=== PATIENT | female | born 1960 | race Caucasian/White ===

== ENCOUNTER 2019-12-07 15:07 | Outpatient (CLI) | payer BC, SELFPAY ==
--- NOTE | ~2019-12-07 | US_ITS ---
EXAMINATION: US transvaginal DATE: 12/07/2019 15:37 INDICATION: Pelvic and perineal pain TECHNIQUE: Multiple endovaginal sonographic images of the pelvis were obtained. COMPARISON: CT, 12/17/2014 FINDINGS: The uterus measures 5.2 x 2.8 x 3.1 cm. There is a 2.1 x 2.1 x 2.9 cm mass projecting near the uterine fundus which likely represents a pedunculated fibroid. The endometrial complex measures 3 mm. The ovaries are not visualized however no adnexal abnormality is seen. There is no free fluid in the pelvis. IMPRESSION: 1. No sonographic correlate for the patient's symptoms. Reviewed, dictated and finalized at location A.
== END 2019-12-07 15:08 ==
PROVIDERS: PCP Internal Medicine; Visit Provider Clinical Nurse Specialist
DX: R10.2 Pelvic and perineal pain (principal)
CPT/HCPCS: 76830

== ENCOUNTER 2020-01-07 10:10 | Outpatient (CLI) | payer BC, SELFPAY ==
[2020-01-07 11:56] LABS: Hepatitis B Surface Antigen Negative (Negative)
[2020-01-07 12:14] LABS: Hepatitis C Virus Antibody Negative (Negative)
[2020-01-08 08:29] LABS: Rapid Plasma Reagin Non-Reactive (NonReactive)
[2020-01-13 17:39] LABS: HSV 1 IgM Screen Negative (Negative); HSV 2 IgM Screen Negative (Negative)
== END 2020-01-07 10:11 | disposition home or self-care (01) ==
PROVIDERS: PCP Internal Medicine; Visit Provider Obstetrics & Gynecology
DX: Z20.2 Contact with and (suspected) exposure to infections with a predominantly sexual mode of transmission (principal)
CPT/HCPCS: 36415; 86592; 86695; 86696; 86803; 87340

== ENCOUNTER 2020-02-04 09:35 | Outpatient (CLI) | payer BC, SELFPAY ==
--- NOTE | ~2020-02-04 | DEXA_ITS ---
Bone Density Report Name: Katelyn Fermin Age: 59 Sex: Female Ethnicity: White Date of : 1960 Indication: postmenopausal; Referring Provider: ANTONIO PENN Study: Bone densitometry was performed. Exam Date: February 04, 2020 Accession number: [id number] Bone Density: Region BMD T-score Z-score Classification AP Spine (L1, L4) 0.959 -0.7 0.5 Normal Femoral Neck (Left) 0.696 -1.4 -0.2 Osteopenia Total Hip (Left) 0.878 -0.5 0.3 Normal Total Hip Bilateral Avg 0.877 -0.6 0.3 Normal Femoral Neck (Right) 0.690 -1.4 -0.3 Osteopenia Total Hip (Right) 0.875 -0.6 0.3 Normal World Health Organization criteria for BMD impression classify patients as: Normal (T-score at or above -1.0), Osteopenia (T-score between -1.0 and -2.5), or Osteoporosis (T-score at or below -2.5). 10-year Fracture Risk(1): Major Osteoporotic Fracture 6.6% Hip Fracture 0.8% Reported Risk Factors: [place] (), Neck BMD=0.690, BMI=37.2, smoking (1) FRAX(R) Version 3.08. Fracture probability calculated for an untreated patient. Fracture probability may be lower if the patient has received treatment. Clinical Information Provided by Patient: Smokes Patient maximum height was 66 Menopause Age: 52 No regular weight bearing exercise Drinks caffeinated beverages Onset of menses at age 13 Number of children 0 Impression: The patient has low bone mass, based on the Left Femoral Neck T-score. The patient has an estimated ten-year risk of hip fracture of 0.8% and an estimated ten-year risk of major fracture of 6.6%, based on the WHO FRAX algorithm. The patient has risk factors, including: smoking. Discussion: BONE DENSITY IS LOW AT ONE OR MORE SKELETAL SITES. This patient's lowest T-score is low at one or more skeletal sites. It meets the World Health Organization's (WHO) criteria for ?low bone mass? (T-score between -1.0 and -2.5). The patient's 10-year risk of fracture as calculated by FRAX is less than the threshold where pharmacological therapy is recommended by the National Osteoporosis Foundation (NOF). However, all treatment decisions require clinical judgment and consideration of individual patient factors, including patient preferences, comorbidities, previous drug use, risk factors not captured in the FRAX model (e.g., frailty, falls, vitamin D deficiency, increased bone turnover, interval significant decline in bone density) and possible under or overestimation of fracture risk by FRAX. The patient should follow a healthful lifestyle (good nutrition with adequate calcium and vitamin D, and appropriate weight-bearing exercise). Follow-Up: Consider repeating this study in 2 to 3 years to reassess this patient's status, or sooner if there is some new clinical indication. Reported by: CHRISTIE on 02/04/2020 10:23:00 AM.
--- NOTE | ~2020-02-04 | MM_ITS ---
EXAMINATION: MM screening estefani BI w sriram HISTORY: Screening mammogram TECHNIQUE: Craniocaudal and mediolateral oblique 3-D tomosynthesis images were obtained and synthetic 2-D images were generated. CAD analysis was submitted and interpreted. COMPARISON: 03/07/2017 bilateral digital screening mammogram BREAST PARENCHYMAL COMPOSITION: FINDINGS: There is no evidence of suspicious mass, calcification, or architectural distortion to sugg est malignancy in either breast. There has been no suspicious interval change. IMPRESSION: 1. No mammographic evidence of malignancy. 2. Recommend routine screening mammography in one year. BI-RADS Category 1: Negative Reviewed, dictated and finalized at location A.
== END 2020-02-04 09:36 | disposition home or self-care (01) ==
LOC: ANHIMG 09:36
PROVIDERS: PCP Internal Medicine; Visit Provider Obstetrics & Gynecology
DX: Z12.31 Encounter for screening mammogram for malignant neoplasm of breast (principal); Z78.0 Asymptomatic menopausal state; M85.852 Other specified disorders of bone density and structure, left thigh; M85.851 Other specified disorders of bone density and structure, right thigh
CPT/HCPCS: 77063; 77067; 77080

== ENCOUNTER 2020-07-22 10:13 | Outpatient (CLI) | payer BC, SELFPAY ==
[2020-07-22 10:35] LABS: Basophils Absolute Auto 0.1 K/mm3 (0.0-0.1); Basophils Percent Auto 0.7 % (0.2-1.2); Eosinophils Absolute Auto 0.1 K/mm3 (0-0.3); Eosinophils Percent Auto 1.4 % (0-4.4); Hematocrit 40.4 % (37.0-47.0); Hemoglobin 12.7 g/dL (12.0-15.0); Immature Granulocyte Absolute 0.04 K/mm3 (0.00-0.031); Immature Granulocyte Percent A 0.5 % (0-0.5); Lymphocytes Absolute Auto 2.65 K/mm3 (0.9-3.2); Lymphocytes Percent Auto 31.8 % (18.3-44.2); Mean Corpuscular HGB Conc 31.4 g/dl (32-36); Mean Corpuscular Hemoglobin 26.1 pg (26-34); Mean Corpuscular Volume 83.1 fl (80-100); Mean Platelet Volume 11.1 fl (7.4-10.4); Monocytes Absolute Auto 0.9 K/mm3 (0.1-0.6); Monocytes Percent Auto 10.2 % (2.6-8.5); Neutrophils Absolute Auto 4.6 K/mm3 (1.3-6.7); Neutrophils Percent Auto 55.4 % (45.5-73.1); Platelet Count Result 297 k/mm3 (150-375); Red Blood Count 4.86 M/mm3 (4.2-5.4); Red Cell Distribution Width 16.2 % (11.5-14.5); White Blood Count 8.3 K/mm3 (4.5-10.0)
[2020-07-22 10:49] LABS: Alanine Aminotransferase 18 U/L (4-35); Albumin Level 4.4 g/dL (3.5-5.1); Alkaline Phosphatase 90 U/L (38-126); Anion Gap 3 mmol/L (8-16); Aspartate Amino Transferase 22 U/L (14-36); Bilirubin,Total 0.5 mg/dL (0.2-1.3); Blood Urea Nitrogen 11 mg/dL (7-17); Calcium 9.1 mg/dL (8.4-10.2); Carbon Dioxide 29 mmol/L (22-30); Chloride 106 mmol/L (98-107); Cholesterol 149 mg/dL (0-200); Estimated Glomerular Filt Rate > 60; Glucose 93 mg/dL (65-105); HDL Direct 38 mg/dL; Sodium 138 mmol/L (137-145); Triglycerides 144 mg/dL (<150)
[2020-07-22 10:58] LABS: LDL Cholesterol Direct 86 mg/dL
[2020-07-22 11:27] LABS: Vitamin D 25 Hydroxy 29.8 ng/mL
[2020-07-22 11:35] LABS: Potassium 4.4 mmol/L (3.4-5.0)
== END 2020-07-22 10:14 | disposition home or self-care (01) ==
PROVIDERS: PCP Internal Medicine; Visit Provider Clinical Nurse Specialist
DX: E78.5 Hyperlipidemia, unspecified (principal); E55.9 Vitamin D deficiency, unspecified; E03.9 Hypothyroidism, unspecified; E53.8 Deficiency of other specified B group vitamins; I10 Essential (primary) hypertension
CPT/HCPCS: 36415; 80053; 80061; 82306; 82607; 82746; 84443; 85025

== ENCOUNTER 2020-09-22 12:31 | Outpatient (CLI) | payer BC, SELFPAY ==
--- NOTE | ~2020-09-22 | XR_ITS ---
EXAMINATION: XR chest 2V DATE: 09/22/2020 12:47 INDICATION: Nonproductive cough TECHNIQUE: PA and lateral views of the chest are obtained. COMPARISON: 11/03/2016 FINDINGS: The lungs are free of acute opacities. There is no pleural effusion or pneumothorax. The ca rdiomediastinal silhouette is normal. There is mild thoracic spondylosis. IMPRESSION: 1. No acute cardiopulmonary abnormality. Reviewed, dictated and finalized at location A.
== END 2020-09-22 12:32 | disposition home or self-care (01) ==
PROVIDERS: PCP Internal Medicine; Visit Provider Clinical Nurse Specialist
DX: R05 Cough (principal)
CPT/HCPCS: 71046

== ENCOUNTER 2020-10-27 10:37 | Outpatient (CLI) | payer BC, SELFPAY ==
--- NOTE | 2020-10-27 11:15 | NEURO_ITS ---
Impression: # Complains of numbness of right hand. # Subtle evolving right Carpal Tunnel Syndrome. # Note right median nerve slowing that is supracarpal tunnel involvement. Also there is cross innervation between median and ulnar nerves. # Normal needle/EMG exam. # Only right upper extremity done per patient request. Nerve Conduction Studies Anti Sensory Summary Table Stim Site NR Peak (ms) P-T Amp (?V) Site1 Site2 Delta-P (ms) Dist (cm) Cuco (m/s) Right Median Anti Sensory (2-3nd Digit) Wrist 3.2 9.5 Wrist 2-3nd Digit 3.2 14.0 44 Wrist 4.2 6.2 Wrist 2-3nd Digit 3.2 14.0 44 Right Radial Anti Sensory (Base 1st Digit) Wrist 2.0 25.1 Wrist Base 1st Digit 2.0 0.0 Right Ulnar Anti Sensory (5th Digit) Wrist 2.2 31.9 Wrist 5th Digit 2.2 14.0 64 Motor Summary Table Stim Site NR Onset (ms) O-P Amp (mV) Site1 Site2 Delta-0 (ms) Dist (cm) Cuco (m/s) Right Median Motor (Abd Poll Brev) Wrist 3.4 1.2 Elbow Wrist 8.6 27.0 31 Elbow 12.0 1.2 Right Ulnar Motor (Abd Dig Minimi) Wrist 2.3 4.4 A Elbow Wrist 4.7 27.0 57 A Elbow 7.0 3.7 F Wave Studies NR F-Lat (ms) L-R F-Lat (ms) Right Median (Mrkrs) (Abd Poll Brev) 29.94 Right Ulnar (Mrkrs) (Abd Dig Min) 28.30 EMG Side Muscle Nerve Root Ins Act Fibs Amp Dur Recrt Comment Right 1stDorInt Ulnar C8-T1 Nml Nml Nml Nml Nml Right Ext Indicis Radial (Post Int) C7-8 Nml Nml Nml Nml Nml Right Ext Digitorum Radial (Post Int) C7-8 Nml Nml Nml Nml Nml Right BrachioRad Radial C5-6 Nml Nml Nml Nml Nml Right PronatorTeres Median C6-7 Nml Nml Nml Nml Nml Right Abd Poll Brev Median C8-T1 Nml Nml Nml Nml Nml MTDD
== END 2020-10-27 10:38 | disposition home or self-care (01) ==
LOC: ANHNEURO 10:39
PROVIDERS: PCP Internal Medicine; Visit Provider Clinical Nurse Specialist
DX: R20.0 Anesthesia of skin (principal); G56.01 Carpal tunnel syndrome, right upper limb
CPT/HCPCS: 95886; 95909

== ENCOUNTER 2021-05-08 14:54 | Outpatient (CLI) | payer BC, SELFPAY ==
--- NOTE | ~2021-05-08 | US_ITS ---
EXAMINATION:US venous doppler LE RT INDICATION:Right leg pain TECHNIQUE: Multiple grayscale, color flow and Doppler images of the right lower extremity deep venous systems were obtained and reviewed. COMPARISON:11/06/2016 FINDINGS: The common femoral, superficial femoral and popliteal veins demonstrate normal respiratory variation, augmentation and compressibility. Color flow is also seen within the posterior tibial, pe roneal, greater saphenous and profunda veins. IMPRESSION: 1: No lower extremity deep venous thrombosis. Reviewed, dictated and finalized at location A. [employer] PROFESSOR
== END 2021-05-08 14:55 | disposition home or self-care (01) ==
LOC: ANHIMG 14:59
PROVIDERS: PCP Internal Medicine; Visit Provider Internal Medicine
DX: M79.601 Pain in right arm (principal); R60.9 Edema, unspecified
CPT/HCPCS: 93971

== ENCOUNTER 2021-05-18 14:13 | Outpatient (CLI) | payer BC, SELFPAY ==
[2021-05-18 14:47] LABS: Add Urine Microscopic? YES; Appearance Urine Clear (Clear); Bacteria Urine Trace /hpf; Bilirubin Urine Negative (Negative); Blood Urine 1+ (Negative); Color Urine Yellow (Yellow); Glucose Urine UA Negative (Negative); Ketones Urine Negative (Negative); Leukocyte Esterase Ur Negative LEU/UL (Negative); Mucus Urine Rare /lpf; Nitrate Urine Negative (Negative); Protein Urine Negative (Negative); Specific Grav Ur 1.025 (1.001-1.035); Squamous Epithelial Cell Urine Rare /hpf (Few); WBC Urine 0-3 /hpf
== END 2021-05-18 14:14 | disposition home or self-care (01) ==
LOC: ANHLAB 14:15
PROVIDERS: PCP Internal Medicine; Visit Provider Internal Medicine
DX: M54.9 Dorsalgia, unspecified (principal)
CPT/HCPCS: 81001

== ENCOUNTER 2021-05-24 15:12 | Outpatient (CLI) | payer MEDICAID, SELFPAY ==
--- NOTE | ~2021-05-24 | CT_ITS ---
EXAMINATION: CT abdomen pelvis wo/w con DATE: 05/24/2021 16:04 INDICATION: Hematuria TECHNIQUE: Computed tomography (CT) of the abdomen and pelvis was performed without intravenous contr ast. CT of the abdomen and pelvis was then performed with a total of 130 mL Omnipaque-350 intravenous contrast using a double-bolus technique for simultaneous opacification of the renal parenchyma and r enal collecting system. Automated exposure control and iterative reconstruction technique were employ ed. The dose-length product was 2688.72 mGy-cm. COMPARISON: 12/17/2014 FINDINGS: CT UROGRAM: Lung bases are clear. Heart size is normal. Atherosclerotic coronary artery calcifications versus jonna nting. No pericardial or pleural effusion. Small sliding-type hiatal hernia. A few calcified gallston es in the dependent aspect of the normal gallbladder. Liver, spleen, pancreas and bilateral adrenal g lands are normal. Kidneys and ureters are normal with no urolithiasis, hydroureteronephrosis or perin ephric/ureteral stranding. Symmetric renal enhancement with no evident suspicious renal parenchymal l esions. The mid right and mid to distal left ureters are decompressed and unopacified with contrast. No urothelial irregularities identified along the contrast opacified portions of the bilateral renal collecting systems and ureters. Bladder is normal. There are few scattered colonic diverticula withou t adjacent inflammatory change to suggest diverticulitis. Small bowel and appendix are normal. 3.2 x 2.8 cm partially calcified pedunculated fibroid arising from the left side of the anteverted uterus. Bilateral adnexa are unremarkable. No free intraperitoneal gas or fluid. No pathologically enlarged a bdominal or pelvic lymphadenopathy. There is calcified atherosclerosis of the aorta, splenic and bila teral iliac arteries. Severe disc height loss at L2-L3 with prominent sclerotic Modic type III degene rative endplate changes at both sides of the disc space. IMPRESSION: 1. No urolithiasis or suspicious renal, ureteral or bladder lesions to explain patient's hematuria. 2. Fibroid uterus. Reviewed, dictated and finalized at location B. GE RIGGER
[2021-05-24 15:42] LABS: Estimated Glomerular Filt Rate > 60
== END 2021-05-24 15:13 | disposition home or self-care (01) ==
LOC: ANHIMG 15:15
PROVIDERS: PCP Internal Medicine; Visit Provider Internal Medicine
DX: R31.9 Hematuria, unspecified (principal); D25.9 Leiomyoma of uterus, unspecified
CPT/HCPCS: 74178; Q9967

== ENCOUNTER 2021-08-08 10:16 | Outpatient (CLI) | payer BC, MEDICAID, SELFPAY ==
[2021-08-08 10:46] LABS: Basophils Absolute Auto 0.1 K/mm3 (0.0-0.1); Basophils Percent Auto 0.9 % (0.2-1.2); Eosinophils Absolute Auto 0.1 K/mm3 (0-0.3); Eosinophils Percent Auto 1.3 % (0-4.4); Hematocrit 38.3 % (37.0-47.0); Hemoglobin 11.8 g/dL (12.0-15.0); Immature Granulocyte Absolute 0.03 K/mm3 (0.00-0.031); Immature Granulocyte Percent A 0.4 % (0-0.5); Lymphocytes Absolute Auto 2.12 K/mm3 (0.9-3.2); Lymphocytes Percent Auto 30.1 % (18.3-44.2); Mean Corpuscular HGB Conc 30.8 g/dl (32-36); Mean Corpuscular Volume 87.6 fl (80-100); Mean Platelet Volume 10.6 fl (7.4-10.4); Monocytes Absolute Auto 0.6 K/mm3 (0.1-0.6); Monocytes Percent Auto 8.7 % (2.6-8.5); Neutrophils Absolute Auto 4.1 K/mm3 (1.3-6.7); Neutrophils Percent Auto 58.6 % (45.5-73.1); Platelet Count Result 248 k/mm3 (150-375); Red Blood Count 4.37 M/mm3 (4.2-5.4); Red Cell Distribution Width 16.2 % (11.5-14.5)
[2021-08-08 10:57] LABS: Alanine Aminotransferase 19 U/L (4-35); Albumin Level 4.2 g/dL (3.5-5.1); Alkaline Phosphatase 96 U/L (38-126); Anion Gap 7 mmol/L (8-16); Aspartate Amino Transferase 25 U/L (14-36); Bilirubin,Total 0.6 mg/dL (0.2-1.3); Blood Urea Nitrogen 11 mg/dL (7-17); Calcium 8.4 mg/dL (8.4-10.2); Carbon Dioxide 25 mmol/L (22-30); Chloride 107 mmol/L (98-107); Cholesterol 172 mg/dL (0-200); Estimated Glomerular Filt Rate > 60; Glucose 96 mg/dL (65-110); HDL Direct 34 mg/dL; Potassium 4.6 mmol/L (3.4-5.0); Sodium 139 mmol/L (137-145); Triglycerides 149 mg/dL (<150)
[2021-08-08 11:08] LABS: LDL Cholesterol Direct 109 mg/dL
[2021-08-08 11:47] LABS: Vitamin D 25 Hydroxy 16.7 ng/mL
[2021-08-08 12:03] LABS: Folic Acid 8.9 ng/mL (2.76->20)
== END 2021-08-08 10:17 | disposition home or self-care (01) ==
LOC: ANHLAB 10:19
PROVIDERS: PCP Internal Medicine; Visit Provider Nurse Practitioner
DX: E78.5 Hyperlipidemia, unspecified (principal); E55.9 Vitamin D deficiency, unspecified; E53.8 Deficiency of other specified B group vitamins; E03.9 Hypothyroidism, unspecified; I10 Essential (primary) hypertension
CPT/HCPCS: 36415; 80053; 80061; 82306; 82607; 82746; 84443; 85025

== ENCOUNTER 2022-04-27 14:55 | Outpatient (CLI) | payer OTHER, SELFPAY | END 2022-04-27 14:56 | disposition home or self-care (01) | LOC: ANHGOSHLAB 14:59 | PROVIDERS: PCP Internal Medicine; Visit Provider Clinical Nurse Specialist | DX: E03.9 Hypothyroidism, unspecified (principal) | CPT/HCPCS: 36415; 84443 ==

== ENCOUNTER 2022-07-31 15:11 | Outpatient (CLI) | payer BC, SELFPAY ==
--- NOTE | ~2022-07-31 | US_ITS ---
EXAMINATION: US thyroid DATE: 07/31/2022 15:32 INDICATION: Hypothyroidism TECHNIQUE: Multiple ultrasound images of the thyroid were obtained. COMPARISON: None. FINDINGS: The right thyroid lobe measures 2.9 x 0.8 x 1.0 cm. The left thyroid lobe measures 2.7 x 0.9 x 0.7 c m. No discrete nodules identified. Diffuse decreased echogenicity and coarsened echotexture througho ut the thyroid with normal vascular flow on color Doppler. IMPRESSION: 1. Atrophic thyroid with coarsened echotexture, which could represent sequela of chronic thyroiditis. Reviewed, dictated and finalized at location A. IMPRESSION: 1. Atrophic thyroid with coarsened echotexture, which could represent sequela o f chronic thyroiditis.
--- NOTE | ~2022-07-31 | CT_ITS ---
EXAMINATION: CT lung screening DATE: 07/31/2022 15:27 INDICATION: Former smoker TECHNIQUE: Computed tomography (CT) of the chest was performed without intravenous contrast. Addition al 3D reconstructions utilizing coronal maximum intensity projection (MIP) were performed. Automated exposure control and iterative reconstruction technique were employed. The dose-length product was 26 8.13 mGy-cm. COMPARISON: None FINDINGS: 6-7 mm right upper lobe nodule. 5 mm nodule in the superior segment of the right lower lobe. 2 mm christiana cified and noncalcified nodules along the left major fissure. No pneumonia, pulmonary edema or pleura l effusion. Heart size is normal. Atherosclerotic coronary artery disease with likely stenting along the left anterior descending and right coronary arteries. No pericardial effusion. Aortic valve calci fication. Thoracic aorta is normal in caliber. No pathologically enlarged thoracic lymphadenopathy. T here is dependently layering fluid in the proximal to mid esophagus which could be related to reflux. Mild to moderate thoracic and severe cervical spondylosis. IMPRESSION: 1. Lung-RADS category 3: Probably benign. Further evaluation is recommended with noncontrast low-dose chest CT in 6 months. Reviewed, dictated and finalized at location L. IMPRESSION: 1. Lung-RADS category 3: Probably benign. Further evaluation is recommended wit h noncontrast low-dose chest CT in 6 months.
== END 2022-07-31 15:12 ==
PROVIDERS: PCP Internal Medicine; Visit Provider Clinical Nurse Specialist
DX: Z12.2 Encounter for screening for malignant neoplasm of respiratory organs (principal); E03.9 Hypothyroidism, unspecified; Z87.891 Personal history of nicotine dependence; R91.8 Other nonspecific abnormal finding of lung field
CPT/HCPCS: 71271; 76536

== ENCOUNTER 2022-08-30 09:36 | Outpatient (CLI) | payer BC, SELFPAY ==
[2022-08-30 18:44] LABS: Kit Draw Collected
== END 2022-08-30 09:37 | disposition home or self-care (01) ==
LOC: ANHGOSHLAB 09:37
PROVIDERS: PCP Internal Medicine; Visit Provider Clinical Nurse Specialist
DX: E03.9 Hypothyroidism, unspecified (principal); D64.9 Anemia, unspecified; E55.9 Vitamin D deficiency, unspecified; R73.9 Hyperglycemia, unspecified; I25.10 Atherosclerotic heart disease of native coronary artery without angina pectoris; E78.5 Hyperlipidemia, unspecified; I10 Essential (primary) hypertension; M25.449 Effusion, unspecified hand
CPT/HCPCS: 36415

== ENCOUNTER 2022-09-07 14:01 | Outpatient (CLI) | payer BC, SELFPAY ==
--- NOTE | ~2022-09-07 | XR_ITS ---
Left Hand Technique: PA, oblique, and lateral views were obtained. Clinical History: Effusion Findings: No acute fracture or dislocation is seen. Osseous alignment is anatomic. Joint spaces are p reserved. Soft tissues are unremarkable. Impression: Unremarkable left hand. Reviewed, dictated and finalized at location M. Impression: Unremarkable left hand.
== END 2022-09-07 14:02 ==
PROVIDERS: PCP Clinical Nurse Specialist; Visit Provider Clinical Nurse Specialist
DX: M79.89 Other specified soft tissue disorders (principal)
CPT/HCPCS: 73130

== ENCOUNTER 2022-09-19 16:29 | Outpatient (CLI) | payer BC, SELFPAY ==
--- NOTE | ~2022-09-19 | MM_ITS ---
EXAMINATION: MM screening estefani BI w sriram HISTORY: Screening mammogram TECHNIQUE: Craniocaudal and mediolateral oblique 3-D tomosynthesis images were obtained and synthetic 2-D images were generated. CAD analysis was submitted and interpreted. COMPARISON: 02/04/2020, 02/25/2007 BREAST PARENCHYMAL COMPOSITION: There are scattered areas of fibroglandular density. FINDINGS: No suspicious mass, calcification, or architectural distortion are identified in either юлия ast to suggest malignancy. There has been no suspicious interval change. IMPRESSION: 1. No mammographic evidence of malignancy. 2. Recommend routine screening mammography in one year. BI-RADS Category 1: Negative Reviewed, dictated and finalized at location A.
== END 2022-09-19 16:30 | disposition home or self-care (01) ==
LOC: ANHIMG 16:30
PROVIDERS: PCP Clinical Nurse Specialist; Visit Provider Clinical Nurse Specialist
DX: Z12.31 Encounter for screening mammogram for malignant neoplasm of breast (principal)
CPT/HCPCS: 77063; 77067

== ENCOUNTER 2022-10-17 10:39 | Outpatient (CLI) | payer BC, SELFPAY ==
--- NOTE | ~2022-10-17 | MR_ITS ---
MRI of the left hand Clinical history: Effusion TECHNIQUE: Coronal T1-weighted and T2 fat-sat images, sagittal T1-weighted and T2 fat-sat images, and axial T1-weighted, T2 fat-sat, and T1 fat-sat images were performed. Following intravenous administr ation of 20 cc MultiHance gadolinium, T1-weighted fat-sat imaging was performed in the axial and sagi ttal planes. FINDINGS: Bone marrow signals in the hand are unremarkable. There is focal marrow edema or hyperinten se marrow signal at the distal scaphoid pole, not well evaluated on this exam. Visualized joint space s appear intact. No joint effusion identified. No erosive or degenerative change evident. Visualized collateral ligaments appear intact. Flexor and extensor tendons in the hand are intact. Visualized musculature unremarkable. No soft tiss ue mass or fluid collection evident. There is focal subcutaneous soft tissue edema at the dorsal aspe ct of the fourth MCP joint region. No suspicious postcontrast enhancement identified. IMPRESSION: No osseous or articular abnormality seen in the hand. No joint effusion in the hand. Focal subcutaneous soft tissue edema of the dorsal aspect of the fourth MCP joint, nonspecific. T2 hyperintense marrow signal to distal scaphoid pole, possibly intraosseous ganglion cyst or geode, incompletely evaluated on this exam. If indicated, consider dedicated imaging of the wrist for furthe r evaluation. Reviewed, dictated and finalized at [facility]. IMPRESSION: No osseous or articular abnormality seen in the hand. No joint effusion in the hand. Focal subcutaneous soft tissue edema of the dorsal aspect of the fourth MCP carlos alberto nt, nonspecific. T2 hyperintense marrow signal to distal scaphoid pole, possibly intraosseous ga nglion cyst or geode, incompletely evaluated on this exam. If indicated, consid er dedicated imaging of the wrist for further evaluation.
== END 2022-10-17 10:40 ==
LOC: MICIMG 10:41
PROVIDERS: PCP Internal Medicine; Visit Provider Clinical Nurse Specialist
DX: M25.442 Effusion, left hand (principal)
CPT/HCPCS: 73220; A9577

== ENCOUNTER 2022-11-17 04:25 | Outpatient (NON) | payer BC, MEDICAID, SELFPAY ==
[2022-11-17 04:45] LABS: Appearance Urine Clear (Clear); Bilirubin Urine Negative (Negative); Blood Urine Trace-intact (Negative); Color Urine Yellow (Yellow); Glucose Urine UA Negative (Negative); Ketones Urine Negative (Negative); Leukocyte Esterase Ur 2+ LEU/UL (Negative); Nitrate Urine Negative (Negative); Protein Urine Negative (Negative); Urobilinogen Urine 0.2 mg/dL (<2.0)
[2022-11-17 04:52] LABS: Add Urine Microscopic? YES
[2022-11-17 04:53] LABS: RBC Urine 0-2 /hpf (0-2); Squamous Epithelial Cell Urine Few /hpf (Few)
== END 2022-11-17 04:26 | disposition home or self-care (01) ==
LOC: ANHLAB 04:26
PROVIDERS: PCP Internal Medicine; Visit Provider Clinical Nurse Specialist
DX: N39.9 Disorder of urinary system, unspecified (principal)
CPT/HCPCS: 81001; 87086

== ENCOUNTER 2023-08-01 11:31 | Outpatient (CLI) | payer OTHER, SELFPAY ==
[2023-08-01 12:50] LABS: Anion Gap 6 mmol/L (8-16); Blood Urea Nitrogen 11 mg/dL (7-17); Carbon Dioxide 30 mmol/L (22-30); Chloride 103 mmol/L (98-107); Potassium 4.2 mmol/L (3.4-5.0); Sodium 139 mmol/L (137-145)
[2023-08-01 12:51] LABS: Alanine Aminotransferase 22 U/L (6-35); Albumin Level 4.3 g/dL (3.5-5.1); Alkaline Phosphatase 83 U/L (38-126); Aspartate Amino Transferase 62 U/L (14-36); Basophils Absolute Auto 0.1 K/mm3 (0.0-0.1); Basophils Percent Auto 0.9 % (0.2-1.2); Bilirubin,Total 0.5 mg/dL (0.2-1.3); Calcium 8.9 mg/dL (8.4-10.2); Cholesterol 130 mg/dL (0-200); Eosinophils Absolute Auto 0.1 K/mm3 (0-0.3); Eosinophils Percent Auto 1.3 % (0-4.4); Estimated Glomerular Filt Rate > 60; Glucose 106 mg/dL (65-110); HDL Direct 31 mg/dL; Hematocrit 42.7 % (37.0-47.0); Hemoglobin 13.1 g/dL (12.0-15.0); Immature Granulocyte Absolute 0.05 K/mm3 (0.00-0.031); Immature Granulocyte Percent A 0.6 % (0-0.5); Lymphocytes Absolute Auto 2.68 K/mm3 (0.9-3.2); Mean Corpuscular HGB Conc 30.7 g/dl (32-36); Mean Corpuscular Hemoglobin 28.1 pg (26-34); Mean Corpuscular Volume 91.6 fl (80-100); Mean Platelet Volume 11.7 fl (7.4-10.4); Monocytes Absolute Auto 0.7 K/mm3 (0.1-0.6); Monocytes Percent Auto 8.9 % (2.6-8.5); Neutrophils Absolute Auto 4.3 K/mm3 (1.3-6.7); Neutrophils Percent Auto 54.3 % (45.5-73.1); Platelet Count Result 250 k/mm3 (150-375); Red Blood Count 4.66 M/mm3 (4.2-5.4); Red Cell Distribution Width 14.5 % (11.5-14.5); Triglycerides 120 mg/dL (<150); White Blood Count 7.9 K/mm3 (4.5-10.0)
[2023-08-01 13:03] LABS: LDL Cholesterol Direct 82 mg/dL
[2023-08-01 13:21] LABS: Free T4 Free Thyroxine 1.22 ng/mL (0.78-2.19)
[2023-08-01 18:05] LABS: Hemoglobin A1C 5.9 % (<5.7)
[2023-08-05 06:15] LABS: Thyroid Peroxidase Antibodies 175 IU/mL (<9)
== END 2023-08-01 11:32 | disposition home or self-care (01) ==
LOC: ANHGOSHLAB 11:33
PROVIDERS: PCP Internal Medicine; Visit Provider Clinical Nurse Specialist
DX: D64.9 Anemia, unspecified (principal); E03.9 Hypothyroidism, unspecified; E53.8 Deficiency of other specified B group vitamins; E78.5 Hyperlipidemia, unspecified; I10 Essential (primary) hypertension; R73.9 Hyperglycemia, unspecified
CPT/HCPCS: 36415; 80053; 80061; 82306; 82607; 83036; 84439; 84443; 85025; 86376